=== PATIENT | female | born 1955 | race Two or more races ===

== ENCOUNTER 2024-01-25 09:37 | Emergency (ER) | payer BC, MEDICAID ==
[~2024-01-25] VITALS: Ht 167.6 cm; Wt 88.2 kg
[2024-01-25 10:45] VITALS: BP 132/91; PULSE 97; RESP 18; TEMP 98.5; O2SAT 98
[2024-01-25] MEDS ORDERED: TRAM-626 PO (11:36)
== END 2024-01-25 11:43 | disposition home or self-care (01) ==
LOC: ER 09:37
DX: S93.402A Sprain of unspecified ligament of left ankle, initial encounter (principal); W01.0XXA Fall on same level from slipping, tripping and stumbling without subsequent striking against object, initial encounter; Y93.89 Activity, other specified; Y92.89 Other specified places as the place of occurrence of the external cause; Y99.8 Other external cause status
CPT/HCPCS: 73610

== ENCOUNTER 2025-02-06 21:17 | Inpatient (IN) | payer BC, MEDICARE ==
[~2025-02-06] VITALS: Ht 165.1 cm; Wt 96.6 kg
[~2025-02-06 21:17] MED LIST: TRAM-626 PO
--- NOTE | 2025-02-06 22:13 | ED.PDOC ---
General HPI Comments 69-year-old female who came to ER for flank pains. Have history of colon cancer/kidney cancer status post right nephrectomy, colon resection, apparently she is on chemotherapy but doesnt see a doctor regarding his issues. For the past 2 days, she has been complaining of left flank pains/left lower back pain associated with decreasing urine output. Noted pain worsens with deep breathing. Denies any recent trauma Chief Complaint: Flank Pain Time Seen by MD: 22:13 Reviewed notes: Nurses Notes Allergies: Coded Allergies: NO KNOWN ALLERGIES (Unverified , 07/09/10) Home Meds Active Scripts Tramadol HCl (Tramadol HCl) 50 Mg Tab, 50 MG PO BID, #20 TAB Prov:EWELINA SLOAN 01/25/24 Information Source: Patient Mode of Arrival: Ambulatory Severity: Moderate Inability to void: Mild Timing: Days Duration: Intermittent Location: (L)Flank Past Medical History PAST MEDICAL HISTORY: Cancer Surgical History (Other): Right nephrectomy, colon resection [employer] History: No Pertinent [employer] History Family History Family History: Reviewed,noncontributory to illness, No family hx of Cancer, No family hx of DM, No family hx of Heart jaya, No family hx of HTN, No family hx ofKidney jaya, No family hx of Liver jaya, No family hx of Lung jaya, No family hx of Stroke Social History Smoker: Non-Smoker Alcohol: Denies ETOH Use Drugs: Denies Drug Use Lives In: Home Constitutional: denies: chills, diaphoresis, fatigue, fever, malaise, sweats, weakness, others EENTM: denies: blurred vision, double vision, ear bleeding, ear discharge, ear drainage, ear pain, ear ringing, eye pain, eye redness, hearing loss, mouth pain, mouth swelling, nasal discharge, nose bleeding, nose congestion, nose pain, photophobia, tearing, throat pain, throat swelling, voice changes, others Respiratory: denies: cough, hemoptysis, orthopnea, SOB at rest, shortness of breath, SOB with excertion, stridor, wheezing, others Cardiovascular: denies: chest pain, dizzy spells, diaphoresis, Dyspnea on exertion, edema, irregular heart beat, left arm pain, lightheadedness, palpitations, PND, syncope, others Gastrointestinal: denies: abdomen distended, abdominal pain, blood streaked bowels, constipated, diarrhea, dysphagia, difficulty swallowing, hematemesis, melena, nausea, poor appetite, poor fluid intake, rectal bleeding, rectal pain, vomiting, others Genitourinary: reports: flank pain (Left), others (decrease urine output); denies: abnormal vagina bleeding, burning, dyspareunia, dysuria, frequency, lela turia, incontinence, pain, , vagina discharge, urgency Neurological: denies: dizziness, fainting, headache, left sided numbness, left sided weakness, numbness, paresthesia, pre-existing deficit, right sided numbness, right sided weakness, seizure, speech problems, tingling, tremors, weakness, others Musculoskeletal: denies: back pain, gout, joint pain, joint swelling, muscle pain, muscle stiffness, neck pain, others Integumetry: denies: bruises, change in color, change in hair/nails, dryness, laceration, lesions, lumps, rash, wounds, others Allergic/Immunocompromised: denies: Difficulty Healing, Frequent Infections, Hives, Itching, others Hematologic/Lymphatic: denies: anemia, blood clots, easy bleeding, easy bruising, swollen glands, others Endocrine: denies: excessive hunger, excessive sweating, excessive thirst, excessive urination, flushing, intolerance to cold, intolerance to heat, unexplained weight gain, unexplained weight loss, others Psychiatric: denies: anxiety, bipolar disorder, depression, hopeless, panic disorder, schizophrenia, sleepless, suicidal, others Physical Exam General Appearance: No Apparent Distress, Normal HEENT: Normal ENT Inspection, Pharynx Normal, TMs Normal Neck: Full Range of Motion, Non-Tender, Normal, Normal Inspection Respiratory: Chest Non-Tender, Lungs Clear, No Accessory Muscle Use, No Respiratory Distress, Normal Breath Sounds Cardiovascular: No Edema, No JVD, No Murmur, No Gallop, Normal Peripheral Pulses, Regular Rate/Rhythm Breast Exam: Deferred Gastrointestinal: No Organomegaly, Non Tender, No Pulsatile Mass, Normal Bowel Sounds, Soft Genitalia: Deferred Pelvic: Deferred Rectal: Deferred Extremities: No calf tenderness, Normal capillary refill, Normal inspection, Normal range of motion, Non-tender, No pedal edema Musculoskeletal : Apperance: Normal Neurologic: Alert, linux vmware administrator II-XII nml as Tested, No Motor Deficits, Normal Affect, Normal Mood, No Sensory Deficits Cerebellar Function: Normal Reflexes: Normal Skin: Dry, Normal Color, Warm Lymphatic: No Adenopathy Was a procedure done? Was a procedure done?: No Differential Diagnosis Kidney stone (Female): Pyelonephritis, Renal failure, Strain, Urinary obstruction, Urolithiasis Urinary Problem (Female): Pyelonephritis, Urinary retention, Urolithiasis, UTI X-Ray, Labs, Meds, VS Vital Signs Date Time Temp Pulse Resp B/P (MAP) Pulse Ox O2 Delivery O2 Flow Rate FiO2 02/06/25 23:30 97.6 107 16 84/54 (64) 97 97.6 02/06/25 21:37 116 02/06/25 21:19 97.2 120 22 117/81 91 97.2 Lab Test 02/06/25 22:14 Range/Units White Blood Count 17.2 H 4.4-10.8 10^3/uL Red Blood Count 5.23 H 4.0-5.20 10^6/uL Hemoglobin 17.1 H 12.2-16.2 g/dL Hematocrit 48.5 H 36.0-46.0 % Mean Corpuscular Volume 92.7 80.0-100.0 fL Mean Corpuscular Hemoglobin 32.7 H 28.0-32.0 pg Mean Corpuscular Hemoglobin Concent 35.2 32.0-36.0 g/dL Red Cell Distribution Width 13.7 11.8-14.3 % Platelet Count 244 140-450 10^3/uL Mean Platelet Volume 7.7 6.9-10.8 fL Neutrophils (%) (Auto) 37.0-80.0 % Lymphocytes (%) (Auto) 10.0-50.0 % Monocytes (%) (Auto) 0.0-12.0 % Basophils (%) (Auto) 0.0-2.0 % Neutrophils # (Auto) 1.6-8.6 10 ^3/uL Lymphocytes # (Auto) 0.4-5.4 10 ^3/uL Monocytes # (Auto) 0-1.3 10 ^3/uL Differential Total Cells Counted 100.0 100 Neutrophils % (Manual) 78 37.0-80.0 Band Neutrophils % (Manual) 19 Lymphocytes % (Manual) 1 L 10.0-50.0 Monocytes % (Manual) 2 0-12 Eosinophils % (Manual) 0 0-7 Basophils % (Manual) 0 0.0-2.0 Metamyelocytes % (manual) 0 Myelocytes % (Manual) 0 Promyelocytes % (Manual) 0 Blast Cells % (Manual) 0 Reactive Lymphocytes 0 Platelet Estimate Adequate Large Platelets Few Sodium Level 134 L 136-145 mmol/L Potassium Level 3.7 3.5-5.1 mmol/L Chloride Level 96 L 98-107 mmol/L Carbon Dioxide Level 23 20-31 mmol/L Anion Gap 15 5-15 Blood Urea Nitrogen 27 H 9-23 mg/dL Creatinine 2.87 H 0.550-1.02 mg/dL Glomerular Filtration Rate Calc 17 >90 mL/min BUN/Creatinine Ratio 9.4 L 10.0-20.0 Serum Glucose 102 74-106 mg/dL Calcium Level 9.6 8.7-10.4 mg/dL Current Medications Medications (Trade) Dose Ordered Sig/Fanny Route Start Time Stop Time Status Last Admin Sodium Chloride 500 ml @ 500 mls/hr Q1H ONCE IV 02/06/25 23:30 02/07/25 00:29 DC 02/06/25 23:36 Time of 1ST Reevaluation: 22:05 Reevaluation 1ST: Unchanged Patient Education/Counseling: Diagnosis, Treatment Family Education/Counseling: No Family Present Comments Patient reportedly has a metastatic colon or renal cancer. Is conflicting whether she is receiving treatments. She states that she is getting chemotherapy however she also states that she does not see a doctor anymore because she feels is a money pit. Patient has meets sepsis criteria and sepsis orders have been implemented. Initially patient's tachycardia and tachypnea were concerning for possible PE. However due to her renal condition CT angio is not able to be obtained. She will need to be admitted for V/Q scan. However around 11:00 a.m., he was made aware that patient also has leukocytosis. And hypo tension. At this point sepsis became another likely differential diagnosis. Sepsis order set has been initiated. Patient will be admitted for further treatment and evaluation of her conditions which may be either due to related to her metastatic condition, sepsis, PE SEPSIS Sepsis Screen Date sepsis recognized/suspect: Feb 06, 2025 Time Sepsis recognized/suspect: 2123 Recent Procedure: No On Antibiotic Therapy: No Respiratory Rate >20: No Heart Rate >90: No Temp<36 C (96.8 F) or >38.3 C: No SBP <90 or MAP <65 mmHG: No New Acute Mental Status Change: No Is the patient on CPAP, BIPAP,: No Physician Orders Electrocardigram (02/06/25 21:50) Chst Ab Pel Wo Con-No Iv/Oral (02/06/25 22:00) Complete Blood Count (02/07/25 01:14) Comprehensive Metabolic Panel (02/07/25 01:14) PTPTT (02/07/25 01:14) Urinalysis (02/07/25 01:14) Chest Portable (02/07/25 01:14) Accucheck (02/07/25 01:14) Lactated Ringer's (02/07/25 01:15) Blood Culture (02/07/25 01:14) Lactic Acid W/ Reflex Order (02/07/25 02:00) Lactic Acid W/ Reflex Order (02/07/25 04:00) Cefepime 2 Gm Q8hr (02/07/25 06:00) Notify Md If Map <65 Or Bp<90 (02/07/25 01:14) If Map<65 Start Vasopressor (02/07/25 01:14) Sepsis Reassesment After Fluid (02/07/25 02:14) Vital Signs Date Time Temp Pulse Resp B/P (MAP) Pulse Ox O2 Delivery O2 Flow Rate FiO2 02/06/25 23:30 97.6 107 16 84/54 (64) 97 97.6 02/06/25 21:37 116 02/06/25 21:19 97.2 120 22 117/81 91 97.2 Laboratory Tests Test 02/06/25 22:14 White Blood Count 17.2 10^3/uL (4.4-10.8) H Medications Medications Dose Ordered Sig/Fanny Route Start Time Stop Time Status Last Admin Dose Admin Sodium Chloride 500 ml @ 500 mls/hr Q1H ONCE IV 02/06/25 23:30 02/07/25 00:29 DC 02/06/25 23:36 Departure 1 Departure Time of Disposition: 01:19 Impression: Primary Impression: Sepsis Qualified Codes: A41.9 - Sepsis, unspecified organism Additional Impressions: Renal failure Qualified Codes: N19 - Unspecified kidney failure Metastatic disease Qualified Codes: C79.9 - Secondary malignant neoplasm of unspecified site Disposition: ADMITTED INPATIENT Admit to: [facility] Condition: Serious Discharged With: Self Critical Care Note Critical Care Time?: Yes (55 min-critical care time only) Critical care comment: Due to concerns for patients condition deteriorating, the care required my highest level of attention and readiness to intervene. I assessed the patient, reviewed the medical records, ordered the appropriate tests and treatments, then reassessed for results and responsiveness. I communicated with medical personnel and consultants and formulated a plan of care. Total critical care time excludes any procedures Stability Stability form required: No Heart Score Heart Score: Heart Score Response (Comments) Value History N/A 0 EKG N/A 0 Age N/A 0 Risk Factors N/A 0 Troponin N/A 0 Total 0 I personally scribed for THANG ARIAS MD ([email or web address]) on 02/06/25 at 22:13. Electronically submitted by Slick Bernard ([facility]). THANG ARIAS MD Feb 06, 2025 22:13
[2025-02-06 22:33] LABS: Hematocrit 48.5 % (36.0-46.0); Hemoglobin 17.1 g/dL (12.2-16.2); Mean Corpuscular Hemoglobin 32.7 pg (28.0-32.0); Mean Corpuscular Volume 92.7 fL (80.0-100.0)
[2025-02-06 22:37] LABS: Potassium 3.7 mmol/L (3.5-5.1)
[2025-02-06 22:38] LABS: Anion Gap 15 (5-15); Carbon Dioxide 23 mmol/L (20-31)
[2025-02-06 22:39] LABS: Calcium 9.6 mg/dL (8.7-10.4)
[2025-02-06 22:40] LABS: Chloride 96 mmol/L (98-107); Sodium 134 mmol/L (136-145)
[2025-02-06 22:44] LABS: BUN/Creatinine Ratio 9.4 (10.0-20.0); Glucose 102 mg/dL (74-106)
[2025-02-06 22:48] LABS: Blood Urea Nitrogen 27 mg/dL (9-23)
[2025-02-06 22:52] LABS: Total Cells Counted 100.0 (100)
[2025-02-06] MEDS: SODIUM CHLORIDE 0.9% 500 ML IV ONE (23:36)
[2025-02-06] MEDS: fentaNYL CITRATE 100 MCG/2 ML VL IV ONE (23:45)
--- NOTE | 2025-02-07 01:15 | DVH ---
EXAM: CT CHST AB PEL WO CON-NO IV/ORAL History: malignancy Comparison Study: None TECHNIQUE: Multidetector CT of the chest, abdomen, and pelvis was performed. Imaging was performed wi thout IV contrast. Axial, coronal, and sagittal multiplanar reformats were obtained from the axial da ta set by the technologist. Radiation Dose : CTDI vol 29.18 mGy, DLP 2035.8 mGy*cm. Findings: CT chest: Evaluation is degraded by respiratory motion. Lungs: 2.3 cm mass within the right upper lobe. 4.2 cm mass within the left upper lobe. Dense opacit y within the left lower lobe. Pleura: Unremarkable Heart/Great vessels: There is mild cardiomegaly. There are mild atherosclerotic calcifications of the aorta. Mediastinum: There are enlarged mediastinal nodes measuring up to 15 mm short axis.. Soft tissues/Bones: Unremarkable CT abdomen/pelvis: Liver: Unremarkable. Spleen: Small splenule. Pancreas: Unremarkable. Gallbladder: Cholelithiasis. Distention of the gallbladder. Adrenals: Unremarkable. Kidneys: Prior right nephrectomy. The left kidney is unremarkable. No hydronephrosis. Pelvic Viscera: Unremarkable. Vasculature: Mild atherosclerotic aortoiliac calcifications. Retroperitoneum: Unremarkable. Bowel: Colonic diverticulosis without CT evidence of diverticulitis. Postsurgical changes of the colo n with likely prior right hemicolectomy. No bowel obstruction. Musculoskeletal: Grade 1 anterolisthesis of L4 on L5. No osseous lesions. Soft tissues: Unremarkable. Impression: 1. Dense opacity throughout the left lower lobe suggesting infectious/ inflammatory process in the ap propriate clinical setting. 2. Pulmonary lesions as above suspicious for metastatic disease in the given clinical setting. 3. Mediastinal adenopathy, which may be metastatic or reactive, further clinical correlation is sugge sted. 4. Cholelithiasis with distention of the gallbladder. No pericholecystic stranding. 5. Additional findings as detailed. Comparison with outside imaging is suggested in assessing acuity and interval change.
[2025-02-07] MEDS ORDERED: ACETAMINOPHEN 325 MG TAB PO PRN (01:30)
[2025-02-07] MEDS ORDERED: VANCOMYCIN PER PHARMACY 0 MG IV SCH (01:30)
[2025-02-07] MEDS ORDERED: ONDANSETRON HCL 4 MG/2 ML VIAL IV PRN (01:30)
[2025-02-07] MEDS ORDERED: DOCUSATE SOD 100 MG CAP PO PRN (01:30)
[2025-02-07] MEDS ORDERED: HYDROcodone-ACET 5/325MG TAB PO PRN (01:30)
[2025-02-07] MEDS: LACTATED RINGER'S 1,700 ML IV ONE (01:40)
[2025-02-07 01:41] LABS: Hematocrit 47.4 % (36.0-46.0); Hemoglobin 16.6 g/dL (12.2-16.2); Mean Corpuscular Hemoglobin 32.3 pg (28.0-32.0); Mean Corpuscular Volume 92.5 fL (80.0-100.0)
--- NOTE | 2025-02-07 01:54 | DVH ---
CHEST RADIOGRAPH Indication: sepsis Technique: 1 view Comparison: Same day CT chest /abdomen/pelvis FINDINGS: Lines and Tubes: None Lungs: Known left perihilar mass, right apical solid nodule, and left lower lobe consolidation. Pleura: No effusion or pneumothorax. Cardiomediastinal contours: Unremarkable. Other: No acute osseous abnormality. IMPRESSION: 1. Baseline chest radiograph. Findings on comparison CT concerning for left mid lung and right apical primary pulmonary malignancy and/or metastatic disease. 2. Superimposed aspiration or infection possible in the left lower lobe.
[2025-02-07 01:57] LABS: Alanine Aminotransferase 12 U/L (7-40); Alkaline Phosphatase 62 U/L (46-116); Anion Gap 16 (5-15); BUN/Creatinine Ratio 9.2 (10.0-20.0); Calcium 9.3 mg/dL (8.7-10.4); Carbon Dioxide 22 mmol/L (20-31); Glucose 91 mg/dL (74-106); INR 1.16 (0.9-1.15); Partial Thromboplastin Time 38.0 SEC (24.5-34.5); Potassium 3.7 mmol/L (3.5-5.1); Prothrombin Time 12.1 sec (9.3-11.8); Total Protein 7.5 g/dL (5.7-8.2)
[2025-02-07 01:58] LABS: Albumin 4.3 g/dL (3.2-4.8)
[2025-02-07 01:59] LABS: Bilirubin, Total 3.1 mg/dL (0.2-1.0); Blood Urea Nitrogen 28 mg/dL (9-23); Chloride 96 mmol/L (98-107); Sodium 134 mmol/L (136-145)
[2025-02-07] MEDS ORDERED: NITROGLYCERIN 0.4 MG SL TAB SL PRN (02:15)
[2025-02-07] MEDS ORDERED: MORPHINE SULFATE INJ 2 MG/ml SYRG IV PRN (02:15)
[2025-02-07 02:16] LABS: Lactic Acid w/Reflex 3.2 mmol/L (0.4-2.0)
[2025-02-07] MEDS: VANCOMYCIN 1GM/250ML IV SCH (02:16)
--- NOTE | 2025-02-07 02:42 | DVHHP2 ---
History of Present Illness Reason for Visit: Acute renal failure History of Present Illness The patient is a 69-year-old female with past medical history of cancer of the colon, kidney and lungs who presented to [facility] ED with complaint of left flank pains. Patient reports she had her right kidney removed years ago due to cancer, now complaint of left flank pain, left lower back pain, associated with decreased urinary output, have not urinate for the past 24 hours. Patient reports he is on chemo pills 2 times a day. Patient was seen and evaluated in the ED, laboratory data shows WBC 17.2, hemoglobin 17.1, hematocrit 48.5, platelets 244, sodium 134, potassium 3.7, BUN 27, creatinine 2.87, GFR 17, glucose 102, calcium 9.6, blood pressure 93/60, heart rate 108, temperature 97.6 F, O2 saturation 97% on room air. Chest/abdomen/pelvis CT revealing dense opacity throughout the left lower lobe suggesting infectious/inflammatory proces s, pulmonary lesions suspicious for metastatic disease; mediastinal adenopathy which may be metastatic reactive, cholelithiasis with distention of the gallbladder, no pericholecystic stranding. Patient was started on IV antibiotic regimen cefepime, please see medication orders section in the computer. On my assessment, patient denied chest pain, no headache, no dizziness, no diapho resis, no shortness of breaths, no abdominal pain, no diarrhea, no nausea, no vomiting, no fever, no chills. Patient was admitted for further evaluation and medical management. Past Medical History Cancer of the colon, kidney and lungs Past Surgical History Right nephrectomy, colon resection Family History Reviewed, noncontributory to the management of this case. Past Social History The patient lives at home, denies smoking, alcohol or illicit drugs abuse. Review of Systems Constitutional: Yes: Weakness; No: Fever, Chills, Sweats, Malaise, Other Eyes: No: Pain, Vision change, Conjunctivae inflammation, Eyelid inflammation, Other, Redness ENT: No: Ear pain, Ear discharge, Nose pain, Nose discharge, Nose congestion, Mouth pain, Mouth swelling, Throat pain, Throat swelling, Other Respiratory: No: Cough, Dry, Shortness of breath, SOB with excertion, Wheezing, Hemoptysis, Pleuritic Pain, Sputum, Wheezing, Other Cardiovascular: No: Chest Pain, Palpitations, Orthopnea, Paroxysmal Noc. Dyspnea, Edema, Lt Headedness, Other Gastrointestinal: No: Nausea, Vomiting, Abdominal Pain, Diarrhea, Constipation, Melena, Hematochezia, Other Genitourinary: No Dysuria, No Frequency, No Incontinence, No Hematuria, No Retention; Other (Left flank pain, aneuric.) Musculoskeletal: No: other, neck pain, shoulder pain, arm pain, back pain, hand pain, leg pain, foot pain Skin: No: Rash, Lesions, Jaundice, Bruising, Other Neurological: No: Weakness, Numbness, Incoordination, Change in speech, Confusion, Seizures, Other Allergies: Coded Allergies: NO KNOWN ALLERGIES (Unverified , 07/09/10) Medications Current Medications Medications Dose Ordered Sig/Fanny Route Start Time Stop Time Status Last Admin Dose Admin Cefepime HCl 50 ml @ 12.5 mls/hr Q12HR IV 02/07/25 10:00 Vancomycin HCl 0 ml @ 0 mls/hr UD IV 02/07/25 01:30 UNV Sodium Chloride 1,000 ml @ 60 mls/hr [id number] IV 02/07/25 01:30 Acetaminophen/ Hydrocodone Bitart 1 tab Q4HP PRN PO 02/07/25 01:30 Ondansetron HCl 4 mg Q4HP PRN IV 02/07/25 01:30 Docusate Sodium 100 mg BIDPRN PRN PO 02/07/25 01:30 Acetaminophen 650 mg Q6HP PRN PO 02/07/25 01:30 Vancomycin HCl 250 ml @ 250 mls/hr Q1H IV 02/07/25 01:45 02/07/25 03:44 Exam Vital Signs Vital Signs Date Time Temp Pulse Resp B/P (MAP) Pulse Ox O2 Delivery O2 Flow Rate FiO2 02/07/25 01:17 97.5 108 16 93/60 (71) 97 97.5 General Appearance: Alert, Oriented X3, Cooperative, No acute distress HEENT: Atraumatic, PERRLA, EOMI, Mucous membr. moist/pink Respiratory: Normal air movement, Other (Diminished breath sounds) Cardiovascular: Regular rate, Normal S1, Normal S2, No murmurs Abdominal: Normal bowel sounds, Soft, No tenderness, No hepatospenomegaly, No masses Extremities: No clubbing, No cyanosis, No edema, Normal pulses, No tenderness/swelling Skin: No rashes, No significant lesion Neuro: Normal speech, Normal tone, Sensation intact, Cranial nerves 3-12 NL, Reflexes 2+, Other (RN) Psych/Mental Status: Mental status NL, Mood NL Labs/Xrays Labs Test 02/07/25 01:27 02/06/25 22:14 Range/Units White Blood Count 16.0 H 4.4-10.8 10^3/uL Red Blood Count 5.13 4.0-5.20 10^6/uL Hemoglobin 16.6 H 12.2-16.2 g/dL Hematocrit 47.4 H 36.0-46.0 % Mean Corpuscular Volume 92.5 80.0-100.0 fL Mean Corpuscular Hemoglobin 32.3 H 28.0-32.0 pg Mean Corpuscular Hemoglobin Concent 34.9 32.0-36.0 g/dL Red Cell Distribution Width 14.0 11.8-14.3 % Platelet Count 220 140-450 10^3/uL Mean Platelet Volume 7.8 6.9-10.8 fL Neutrophils (%) (Auto) 37.0-80.0 % Lymphocytes (%) (Auto) 10.0-50.0 % Monocytes (%) (Auto) 0.0-12.0 % Basophils (%) (Auto) 0.0-2.0 % Neutrophils # (Auto) 1.6-8.6 10 ^3/uL Lymphocytes # (Auto) 0.4-5.4 10 ^3/uL Monocytes # (Auto) 0-1.3 10 ^3/uL Prothrombin Time 12.1 H 9.3-11.8 sec Prothrombin Time INR 1.16 H 0.9-1.15 Activated Partial Thromboplast Time 38.0 H 24.5-34.5 SEC Sodium Level 134 L 136-145 mmol/L Potassium Level 3.7 3.5-5.1 mmol/L Chloride Level 96 L 98-107 mmol/L Carbon Dioxide Level 22 20-31 mmol/L Anion Gap 16 H 5-15 Blood Urea Nitrogen 28 H 9-23 mg/dL Creatinine 3.03 H 0.550-1.02 mg/dL Glomerular Filtration Rate Calc 16 >90 mL/min BUN/Creatinine Ratio 9.2 L 10.0-20.0 Serum Glucose 91 74-106 mg/dL Calcium Level 9.3 8.7-10.4 mg/dL Total Bilirubin 3.1 H 0.2-1.0 mg/dL Aspartate Amino Transferase (AST) 21 13-40 U/L Alanine Aminotransferase (ALT) 12 7-40 U/L Alkaline Phosphatase 62 46-116 U/L Total Protein 7.5 5.7-8.2 g/dL Albumin 4.3 3.2-4.8 g/dL Large Platelets Few PATIENT: RICHARD CRONIN ACCT: [id number] UNIT: [id number] : 1955 LOC: ER ROOM / BED: / AGE / SEX: 69 / F ADM STATUS: REG ER SERVICE 99 ORDERING PHYSICIAN: THANG ARIAS MD PROCEDURE(s): CTCAP - CHST AB PEL WO CON-NO IV/ORAL REASON: malignancy ORDER NUMBER(s): [id number], ACCESSION NUMBER(s): [id number] EXAM: CT CHST AB PEL WO CON-NO IV/ORAL History: malignancy Comparison Study: None TECHNIQUE: Multidetector CT of the chest, abdomen, and pelvis was performed. Imaging was performed without IV contrast. Axial, coronal, and sagittal multiplanar reformats were obtained from the axial data set by the technologist. Radiation Dose: CTDI vol 29.18 mGy, DLP 2035.8 mGy*cm. Findings: CT chest: Evaluation is degraded by respiratory motion. Lungs: 2.3 cm mass within the right upper lobe. 4.2 cm mass within the left upper lobe. Dense opacity within the left lower lobe. Pleura: Unremarkable Heart/Great vessels: There is mild cardiomegaly. There are mild atherosclerotic calcifications of the aorta. Mediastinum: There are enlarged mediastinal nodes measuring up to 15 mm short axis.. Soft tissues/Bones: Unremarkable CT abdomen/pelvis: Liver: Unremarkable. Spleen: Small splenule. Pancreas: Unremarkable. Gallbladder: Cholelithiasis. Distention of the gallbladder. Adrenals: Unremarkable. Kidneys: Prior right nephrectomy. The left kidney is unremarkable. No hydronephrosis. Pelvic Viscera: Unremarkable. Vasculature: Mild atherosclerotic aortoiliac calcifications. Retroperitoneum: Unremarkable. Bowel: Colonic diverticulosis without CT evidence of diverticulitis. Postsurgical changes of the colon with likely prior right hemicolectomy. No bowel obstruction. Musculoskeletal: Grade 1 anterolisthesis of L4 on L5. No osseous lesions. Soft tissues: Unremarkable. Impression: 1. Dense opacity throughout the left lower lobe suggesting infectious/inflammatory process in the appropriate clinical setting. 2. Pulmonary lesions as above suspicious for metastatic disease in the given clinical setting. 3. Mediastinal adenopathy, which may be metastatic or reactive, further clinical correlation is suggested. 4. Cholelithiasis with distention of the gallbladder. No pericholecystic stranding. 5. Additional findings as detailed. Comparison with outside imaging is suggested in assessing acuity and interval change. ORDERING PHYSICIAN: THANG ARIAS MD PROCEDURE(s): CXRP - CHEST PORTABLE REASON: sepsis ORDER NUMBER(s): [id number], ACCESSION NUMBER(s): [id number] CHEST RADIOGRAPH Indication: sepsis Technique: 1 view Comparison: Same day CT chest /abdomen/pelvis FINDINGS: Lines and Tubes: None Lungs: Known left perihilar mass, right apical solid nodule, and left lower lobe consolidation. Pleura: No effusion or pneumothorax. Cardiomediastinal contours: Unremarkable. Other: No acute osseous abnormality. IMPRESSION: 1. Baseline chest radiograph. Findings on comparison CT concerning for left mid lung and right apical primary pulmonary malignancy and/or metastatic disease. 2. Superimposed aspiration or infection possible in the left lower lobe. SEPSIS Sepsis Screen Date sepsis recognized/suspect: Feb 06, 2025 Time Sepsis recognized/suspect: 2123 Recent Procedure: No On Antibiotic Therapy: No Respiratory Rate >20: No Heart Rate >90: No Temp<36 C (96.8 F) or >38.3 C: No SBP <90 or MAP <65 mmHG: No New Acute Mental Status Change: No Is the patient on CPAP, BIPAP,: No Physician Orders Electrocardigram (02/06/25 21:50) Chst Ab Pel Wo Con-No Iv/Oral (02/06/25 22:00) Complete Blood Count (02/07/25 01:14) Urinalysis (02/07/25 01:14) Chest Portable (02/07/25 01:14) Accucheck (02/07/25 01:14) Lactated Ringer's (02/07/25 01:15) Blood Culture (02/07/25 01:14) Lactic Acid W/ Reflex Order (02/07/25 02:00) Cefepime 1gm/ 50ml (Maxipime 1gm/50ml) (02/07/25 10:00) Notify Md If Map <65 Or Bp<90 (02/07/25 01:14) If Map<65 Start Vasopressor (02/07/25 01:14) Sepsis Reassesment After Fluid (02/07/25 02:14) Nm Vq Scan (02/07/25 01:20) *Dr. Christi Moraes -Da Lauryn (02/07/25 01:28) Vancomycin Per Pharmacy (02/07/25 01:30) Allergies (02/07/25 01:28) Code Status (02/07/25 01:28) Sodium Chloride 0.9% (02/07/25 01:30) Oxygen Per Hour (02/07/25 01:28) Hydrocodone-Acet 5/325mg Tab ([place] 5/32 (02/07/25 01:30) Ondansetron Hcl (Zofran) (02/07/25 01:30) Docusate Sodium Capsule (Colace Capsule) (02/07/25 01:30) Complete Blood Count (02/08/25 04:00) Comprehensive Metabolic Panel (02/08/25 04:00) Cardiac Diet-2gna,Lofat,Lochol (02/07/25 Breakfast) Condition: Serious (02/07/25 01:28) Acetaminophen Tablet (Tylenol Tablet) (02/07/25 01:30) Bedrest With Bathroom Privileg (02/07/25 01:28) Sequential Compression Device (02/07/25 ) Vancomycin 1gm/250ml Kit (02/07/25 01:45) Manual Differential (02/07/25 01:27) Vital Signs Date Time Temp Pulse Resp B/P (MAP) Pulse Ox O2 Delivery O2 Flow Rate FiO2 02/07/25 01:17 97.5 108 16 93/60 (71) 97 97.5 02/06/25 23:30 97.6 107 16 84/54 (64) 97 97.6 02/06/25 21:37 116 02/06/25 21:19 97.2 120 22 117/81 91 97.2 Laboratory Tests Test 02/06/25 22:14 02/07/25 01:27 White Blood Count 17.2 10^3/uL (4.4-10.8) H 16.0 10^3/uL (4.4-10.8) H Lactic Acid Level Pending Medications Medications Dose Ordered Sig/Fanny Route Start Time Stop Time Status Last Admin Dose Admin Lactated Ringer's 1,700 ml @ 1,700 mls/hr ONCE ONCE IV 02/07/25 01:15 02/07/25 02:14 02/07/25 01:40 1,700 MLS/HR Sodium Chloride 500 ml @ 500 mls/hr Q1H ONCE IV 02/06/25 23:30 02/07/25 00:29 DC 02/06/25 23:36 500 MLS/HR Assessment/Plan Assessment/Plan Sepsis, unspecified organism Acute renal failure Unspecified kidney failure Leukocytosis, unspecified Metastatic disease Generalized weakness Secondary malignant neoplasm of unspecified site Plan 1. Admit to telemetry unit 2. Breathing treatment 3. Pain control management 4. IV antibiotic management 5. Management of fluids and electrolytes 6. Consultation for hospitalist/hematology oncology 7. Diagnostic test chest/abdomen/pelvis CT 8. DVT prophylaxis on SCDs 9. Repeat labs CBC, CMP in a.m. 10. Home medication reviewed and reconciled 11. Continue with current medical management 12. Treatment plan discussed with patient and RN. Patient verbalized understanding. Plan discussed with: Patient, Other (RN) My Orders Orders - DANI PIKE DNP Procedure Category Date Status Time *Dr. Christi Moraes -Simon CONS 02/07/25 Transmitted Lauryn 01:28 Vancomycin Per PHA 02/07/25 Pending Pharmacy 01:30 Allergies FLORENCIA 02/07/25 In Process 01:28 Code Status CODE 02/07/25 Transmitted 01:28 Sodium Chloride 0.9% PHA 02/07/25 In Process 01:30 Oxygen Per Hour RT 02/07/25 Transmitted 01:28 Hydrocodone-Acet PHA 02/07/25 In Process 5/325mg Tab ([place] 01:30 Ondansetron Hcl PHA 02/07/25 In Process (Zofran) 01:30 Docusate Sodium PHA 02/07/25 In Process Capsule (Colace 01:30 Complete Blood Count LAB 02/08/25 Verified 04:00 Comprehensive LAB 02/08/25 Verified Metabolic Panel 04:00 Cardiac DIET 02/07/25 Transmitted Diet-2gna,Lofat,Lochol Breakfast Condition: Serious FLORENCIA 02/07/25 In Process 01:28 Acetaminophen Tablet [facility] 02/07/25 In Process (Tylenol Tablet) 01:30 Bedrest With Bathroom [facility] 02/07/25 In Process Privileg 01:28 Sequential [facility] 02/07/25 In Process Compression Device Vancomycin 1gm/250ml PHA 02/07/25 In Process Kit 01:45 Problem List: (1) Sepsis, unspecified organism (2) Acute renal failure (3) Unspecified kidney failure (4) Leukocytosis, unspecified (5) Generalized weakness (6) Metastatic disease (7) Secondary malignant neoplasm of unspecified site Date of Service: Feb 07, 2025 Billing Provider: DANI PIKE DNP Common Visit Codes: [id number] INP/OBS CARE (HIGH) DANI PIKE DNP Feb 07, 2025 02:42
[2025-02-07 04:42] LABS: Total Cells Counted 100.0 (100)
[2025-02-07] MEDS: SODIUM CHLORIDE 0.9% 1,000 ML IV SCH (07:52)
[2025-02-07 07:54] VITALS: BP 108/69; TEMP 99
[2025-02-07 07:55] VITALS: PULSE 87; RESP 20; O2SAT 97
[2025-02-07] MEDS ORDERED: CEFEPIME 1GM/ 50ML 50 ML IV SCH (10:00)
--- NOTE | 2025-02-07 12:48 | DVHDS2 ---
Discharge Summary Date of Admission Feb 07, 2025 at 02:11 Date of Discharge: Feb 07, 2025 Admitting Diagnosis Sepsis, unspecified organism Acute renal failure Unspecified kidney failure Leukocytosis, unspecified Metastatic disease Generalized weakness Secondary malignant neoplasm of unspecified site Labs/Diagnostic Data: Laboratory Results Test 02/07/25 03:26 02/07/25 01:27 Lactic Acid Level 4.0 mmol/L (0.4-2.0) White Blood Count 16.0 10^3/uL (4.4-10.8) Red Blood Count 5.13 10^6/uL (4.0-5.20) Hemoglobin 16.6 g/dL (12.2-16.2) Hematocrit 47.4 % (36.0-46.0) Mean Corpuscular Volume 92.5 fL (80.0-100.0) Mean Corpuscular Hemoglobin 32.3 pg (28.0-32.0) Mean Corpuscular Hemoglobin Concent 34.9 g/dL (32.0-36.0) Red Cell Distribution Width 14.0 % (11.8-14.3) Platelet Count 220 10^3/uL (140-450) Mean Platelet Volume 7.8 fL (6.9-10.8) Neutrophils (%) (Auto) % (37.0-80.0) Lymphocytes (%) (Auto) % (10.0-50.0) Monocytes (%) (Auto) % (0.0-12.0) Basophils (%) (Auto) % (0.0-2.0) Neutrophils # (Auto) 10 ^3/uL (1.6-8.6) Lymphocytes # (Auto) 10 ^3/uL (0.4-5.4) Monocytes # (Auto) 10 ^3/uL (0-1.3) Differential Total Cells Counted 100.0 (100) Neutrophils % (Manual) 72 (37.0-80.0) Band Neutrophils % (Manual) 22 Lymphocytes % (Manual) 6 (10.0-50.0) Monocytes % (Manual) 0 (0-12) Eosinophils % (Manual) 0 (0-7) Basophils % (Manual) 0 (0.0-2.0) Metamyelocytes % (manual) 0 Myelocytes % (Manual) 0 Promyelocytes % (Manual) 0 Blast Cells % (Manual) 0 Reactive Lymphocytes 0 Platelet Estimate Adequate Large Platelets Few Prothrombin Time 12.1 sec (9.3-11.8) Prothrombin Time INR 1.16 (0.9-1.15) Activated Partial Thromboplast Time 38.0 SEC (24.5-34.5) Sodium Level 134 mmol/L (136-145) Potassium Level 3.7 mmol/L (3.5-5.1) Chloride Level 96 mmol/L (98-107) Carbon Dioxide Level 22 mmol/L (20-31) Anion Gap 16 (5-15) Blood Urea Nitrogen 28 mg/dL (9-23) Creatinine 3.03 mg/dL (0.550-1.02) Glomerular Filtration Rate Calc 16 mL/min (>90) BUN/Creatinine Ratio 9.2 (10.0-20.0) Serum Glucose 91 mg/dL (74-106) Calcium Level 9.3 mg/dL (8.7-10.4) Total Bilirubin 3.1 mg/dL (0.2-1.0) Aspartate Amino Transferase (AST) 21 U/L (13-40) Alanine Aminotransferase (ALT) 12 U/L (7-40) Alkaline Phosphatase 62 U/L (46-116) Total Protein 7.5 g/dL (5.7-8.2) Albumin 4.3 g/dL (3.2-4.8) Other Laboratory Tests 02/07/25 01:27 Brief Hx & Hospital Course: This is a 69 years old female with past medical history of colon cancer, kidney and lung disease came to emergency department because of left flank pain. Apparently the patient had a kidney removed on the right side due to cancer now complain of left flank pain, left lower back pain, decreased urine output and not urinate for 24 hours. The patient is on chemotherapy the patient takes 2 chemo pill per day. The patient was found to have sepsis with elevation of the WBC of 17.2 hematocrit in 17.1 hematocrit 48.5 and platelet 244. The patient's temperature is 97.6 saturation oxygen 97% in room air CT abdomen chest pelvis showed opacity throughout the left lower lobe suggests infectious inflammatory process. Pulmonary lesion suspicious for metastasis disease. Mediastinal adenopathy with can be metastatic reactive. Cholelithiasis with distended of the gallbladder, no gretta cholecystic strain. The patient was started on IV antibiotic cefepime. The patient came today and stated that they do not want her to [facility]. He will drive her down to [facility]. The patient was advised that she not stable to be discharge. The patient adamant that she had to go and left against medical advice Physical exam: HEENT: Normocephalic atraumatic pupils equal react to light and accommodation. Extraocular muscles intact, conjunctiva pink, oropharynx moist, no thrush, no exudate. Lymphatic: No lymphadenopathy Cardiovascular exam: S1, S2 was heard. No murmurs, rubs, gallops Lung: Clear on auscultation bilaterally, no wheeze, rale, rhonchi. GI: Abdominal soft, nondistended, nontenderness, positive bowel sounds. Extremity: No crepitus, cyanosis, edema. Pedal pulses present bilateral. Full range of motion. Skin: Normal turgor, no rash. Psych: Alert, oriented x3. Neurology: No focal deficits, cranial nerve II to XII grossly intact. This medical document was created using an electronic medical record system with [facility] direct computerized dictation system. Although this document has been carefully reviewed, there may still be some phonetic and typographical errors. These areas are purely typographical due to imperfections of the software programs, and do not reflect any compromise in the patient's medical care.. Condition at Discharge: Guarded Final Diagnosis/Problems List Sepsis, unspecified organism Acute renal failure Unspecified kidney failure Leukocytosis, unspecified Metastatic disease Generalized weakness Secondary malignant neoplasm of unspecified site Discharge Disposition: AMA Discharge Instruct/Medications Scheduled Tramadol HCl (Tramadol HCl), 50 MG PO BID Discharge Statement: "Patient was advised to return to the ER or call 911 if any headaches, dizziness, shortness of breath, chest pain, abdominal pain, bleeding, fevers, or worsening of medical condition. Patient was counseled about treatment plan, medications, possible side effects, patientverbalized understanding. All questions were answered to the best of my ability. This discharge took greater then 30 minutes in planning, reviewing documentation, counseling the patient, and discussing with other team members." ASSESSMENT ASSESSMENT Assessment Date of Service: Feb 07, 2025 Billing Provider: ABDIEL RODRIGUEZ MD Common Visit Codes: [id number] SAME DATE (HIGH) ABDIEL RODRIGUEZ MD Feb 07, 2025 12:47
--- NOTE | 2025-02-08 09:16 | ECG ---
[facility] Test Date: 2025-02-06 Test Time: 21:37:47 Pat Name: RICHARD CRONIN Department: ED Room: [address] [place] [address] Gender: F Heel Coverer: NORMA : 1955 Requested By: THANG ARIAS Order Number: [id number] Reading MD: Nilo Can Measurements Intervals [place] Rate: 116 P: 77 MT: 127 QRS: -12 QRSD: 85 T: 34 QT: 335 QTc: 466 Interpretive Statements Sinus tachycardia with irregular rate Baseline wander in lead(s) II,III,aVR,aVF Electronically Signed On 02-10-2025 18:35:47 PDT by Nilo Can Please click the below link to view image of tracing.
== END 2025-02-07 11:05 | disposition left against medical advice (07) | DRG 872 ==
LOC: ER 21:17 → OVERFLOW 02-07 02:11
PROVIDERS: ADMIT Nurse Practitioner Family; ATTEND Nurse Practitioner Family
DX: A41.9 Sepsis, unspecified organism (principal); C78.5 Secondary malignant neoplasm of large intestine and rectum; N17.9 Acute kidney failure, unspecified; K80.20 Calculus of gallbladder without cholecystitis without obstruction; Z53.29 Procedure and treatment not carried out because of patient's decision for other reasons; Z90.5 Acquired absence of kidney; Z85.038 Personal history of other malignant neoplasm of large intestine
CPT/HCPCS: 36415; 71045; 71250; 74176; 80048; 80053; 83605; 85007; 85027; 85610; 85730; 87040; 93005; 96365; 99291; G0378